=== PATIENT | male | born 1985 | race Caucasian/White ===

== ENCOUNTER 2025-05-24 10:48 | Emergency (ER) | payer OTHER ==
[~2025-05-24] VITALS: Ht 185.4 cm; Wt 106.6 kg
[2025-05-24] MEDS ORDERED: ZOLOFT10013 PO (11:47)
== END 2025-05-24 13:10 | disposition home or self-care (01) ==
LOC: ER 10:48
DX: S83.92XA Sprain of unspecified site of left knee, initial encounter (principal); Z79.899 Other long term (current) drug therapy; W01.0XXA Fall on same level from slipping, tripping and stumbling without subsequent striking against object, initial encounter
CPT/HCPCS: 73562-LT; 99283-25; A9270